=== PATIENT | male | born 1990 | race Caucasian/White ===

== ENCOUNTER 2017-12-11 15:24 | Emergency (ER) | payer SELFPAY ==
--- NOTE | 2017-12-11 16:46 | UC ---
General HPI - HPI Summary HPI Summary: Conducted in [place]. Patient accompanied by friend. Pt reports through his good friend that he has chest pain at night since Wednesday, when he takes a deep breath, coughs or sneezes, and when he has awakened, he cannot get back to sleep because he gets a little worried and because he is uncomfortable. Pain about 3/10 with deep breaths - History of Current Complaint Chief Complaint: UCChestPain Stated Complaint: CHEST CONGESTION Time Seen by Provider: 12/11/17 16:33 Hx Obtained From: Patient, Family/Sugar Laboratory Assistant Onset/Duration: Sudden Onset, Lasting Days Timing: Intermittent Episodes Lasting: Onset Severity: Severe Current Severity: Mild Pain Intensity: 3 - Allergy/Home Medications Allergies/Adverse Reactions: Allergies Allergy/AdvReac Type Severity Reaction Status Date / Time No Known Allergies Allergy Verified 12/11/17 15:54 Home Medications: Home Medications Ibuprofen TAB* [Motrin TAB* 400 MG] 400 mg PO Q6H PRN 12/11/17 [History Confirmed 12/11/17] PMH/Surg Hx/FS Hx/Imm Hx Previously Healthy: Yes - Surgical History Surgical History: None - Family History Known Family History: Positive: None - Social History Alcohol Use: Weekly Substance Use Type: None Smoking Status (MU): Never Smoked Tobacco Review of Systems Constitutional: Negative Musculoskeletal: Arthralgia, Myalgia All Other Systems Reviewed And Are Negative: Yes Physical Exam - Summary Physical Exam Summary: chest: negative for deformity, rash, bruising. Tender on palpation left aspect Triage Information Reviewed: Yes Appearance: Well-Appearing, No Pain Distress, Well-Nourished Vital Signs: Initial Vital Signs Temp 98.7 F 12/11/17 15:40 Pulse 63 12/11/17 15:40 Resp 16 12/11/17 15:40 BP 140/94 12/11/17 15:40 Pulse Ox 100 12/11/17 15:40 Vital Signs Reviewed: Yes Eyes: Positive: Conjunctiva Clear ENT: Positive: Hearing grossly normal, Pharynx normal Neck: Positive: Supple, Nontender, No Lymphadenopathy Respiratory: Positive: Chest non-tender, Lungs clear, Normal breath sounds Cardiovascular: Positive: RRR, No Murmur, Pulses Normal Abdominal Exam: Normal Abdomen Description: Positive: Nontender, No Organomegaly, Soft Bowel Sounds: Positive: Present Musculoskeletal: Positive: Strength Intact, ROM Intact, No Edema Neurological: Positive: Alert, Muscle Tone Normal Psychological: Positive: Age Appropriate Behavior Skin Exam: Normal Course/Dx - Course Course Of Treatment: Patient c/o left sided chest pain starting 3 days ago that appears with deep inspiration, cough, sneezing and laughing. Pain is not associated with activity as he lives in the second floor of a building and has to climb stairs several times a day, and has not impeded his walking. EKG shows NSR, CXR wnl. Patient states pain responded to naproxen and decreased from 10/ 10 three days ago to 3/10 today. Continue ibuprofen as needed. - Differential Dx - Multi-Symptom Provider Diagnoses: elevated BP without history of HTN. Serositis/ costochondritis Discharge - Sign-Out/Discharge Documenting (check all that apply): Patient Departure All imaging exams completed and their final reports reviewed: Yes - Discharge Plan Condition: Stable Disposition: HOME Patient Education Materials: Costochondritis (ED), Ibuprofen (By mouth) Print Language: KOREAN Referrals: No Primary Care Phys,NOPCP [Primary Care Provider] - [facility] [Outside] Additional Instructions: Por favor llame al eva que se le reece para que jaqui duke con un medico primario. Bonilla presion arterial esta un Welsh ibuprofen para el dolor cuando lo necesite. - Billing Disposition and Condition Condition: STABLE Disposition: Home
--- NOTE | 2017-12-11 17:34 | RAD ---
Indication: Chest pain. 2 views of the chest including dual energy PA views demonstrate no mediastinal shift. Heart is of normal size and configuration. Lung myers are clear. IMPRESSION: No active cardiopulmonary disease is noted.
[2017-12-11 17:38] VITALS: BP 140/86
== END 2017-12-11 18:05 | disposition home or self-care (01) ==
LOC: UCEAST 15:24
DX: M94.0 Chondrocostal junction syndrome [Tietze] (principal); K65.8 Other peritonitis; R03.0 Elevated blood-pressure reading, without diagnosis of hypertension
CPT/HCPCS: 71046; 93005; 99202; G0463